=== PATIENT | male | born 1990 | race Two or more races ===

== ENCOUNTER 2019-05-08 09:46 | Emergency (ER) | payer OTHER ==
[2019-05-08 09:51] VITALS: BP 117/56; PULSE 76; TEMP 98; BMI 24.3
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
== END 2019-05-08 11:00 | disposition home or self-care (01) ==
LOC: JERFT 09:46
DX: V43.62XA Car passenger injured in collision with other type car in traffic accident, initial encounter (principal); Y93.89 Activity, other specified; Y92.410 Unspecified street and highway as the place of occurrence of the external cause; Z91.018 Allergy to other foods
CPT/HCPCS: 99281-25

== ENCOUNTER 2020-07-14 14:38 | Emergency (ER) | payer OTHER | END 2020-07-14 14:47 | disposition home or self-care (01) | LOC: JVIRT 14:38 | DX: Z11.59 Encounter for screening for other viral diseases (principal) | CPT/HCPCS: C9803; G2012-GT; Q3014-GT; U0003 ==